=== PATIENT | male | born 1975 | race African-American/Black ===

== ENCOUNTER 2019-01-25 19:31 | Emergency (ER) | payer OTHER ==
[~2019-01-25] VITALS: Ht 177.8 cm; Wt 66.7 kg
--- NOTE | 2019-01-25 19:59 | PHYS DOC ---
Adult General Chief Complaint Chief Complaint: ALTERED MENTAL STATUS HPI HPI 43-year-old male presents via EMS with patient care director escort syncopal episode at the senior care. The patient tells me that he remembers going back to his cell after dinner. He felt like he needed to go to the restroom. He was not able to immediately to the restroom and thus lasting he remembers. He believes that he was standing up when he blacked out. When he woke up there were several guards around him telling him that he smoked something. The patient denies any smoking anything or did any other drugs. He denies any pain at this time. He has no seizure history. He is not on any medications. The guards who accompany him state that the story is consistent with what they were told. He was found [facility] under his bed in his cell. He was initially unresponsive, but his body was twitching. Patient has not had recent illness. He denies fever or chills. Review of Systems Review of Systems Constitutional: Denies fever or chills [] Eyes: Denies change in visual acuity, redness, or eye pain [] HENT: Denies nasal congestion or sore throat [] Respiratory: Denies cough or shortness of breath [] Cardiovascular: No additional information not addressed in HPI [] GI: Denies abdominal pain, nausea, vomiting, bloody stools or diarrhea [] : Denies dysuria or hematuria [] Musculoskeletal: Denies back pain or joint pain [] Integument: Denies rash or skin lesions [] Neurologic: Syncope. Denies headache, focal weakness or sensory changes [] Endocrine: Denies polyuria or polydipsia [] All other systems were reviewed and found to be within normal limits, except as documented in this note. Current Medications Current Medications Current Medications Medications (Trade) Dose Ordered Sig/Clyde Start Time Stop Time Status Last Admin Dose Admin Sodium Chloride 1,000 ml @ 1,000 mls/hr 1X ONCE 01/25/19 20:00 01/25/19 20:59 UNV 01/25/19 19:52 1,000 MLS/HR Physical Exam Physical Exam Constitutional: Well developed, well nourished, no acute distress, non-toxic appearance. [] HENT: Normocephalic, atraumatic, bilateral external ears normal, oropharynx moist, no oral exudates, nose normal. [] Eyes: PERRLA, EOMI, conjunctiva normal, no discharge. [] Neck: Normal range of motion, no tenderness, supple, no stridor. [] Cardiovascular:Heart rate regular rhythm, no murmur [] Lungs & Thorax: Bilateral breath sounds clear to auscultation [] Abdomen: Bowel sounds normal, soft, no tenderness, no masses, no pulsatile masses. [] Skin: Warm, dry, no erythema, no rash. [] Back: No tenderness, no CVA tenderness. [] Extremities: No tenderness, no cyanosis, no clubbing, ROM intact, no edema. [] Neurologic: Alert and oriented X 3, normal motor function, normal sensory function, no focal deficits noted. [] Psychologic: Affect normal, judgement normal, mood blunted. [] EKG EKG Sinus rhythm, rate 79, normal axis, no ST elevations or depressions.[] Radiology/Procedures Radiology/Procedures [] Course & Med Decision Making Course & Med Decision Making Pertinent Labs and Imaging studies reviewed. (See chart for details) Patient's labs are unremarkable. His urinalysis is negative for infection. His EKG is unremarkable. We have given the patient 2 L normal saline, 4 mg of Zofran. His urine drug screen was positive for methamphetamine. This is likely the source of his difficulties. The patient is at baseline at this time. He is stable for discharge. [] Dragon Disclaimer Dragon Disclaimer This electronic medical record was generated, in whole or in part, using a voice recognition dictation system. Departure Departure: Impression: Primary Impression: Methamphetamine abuse Disposition: 01 HOME, SELF-CARE Condition: STABLE Patient Instructions: Methamphetamine Abuse, Complications NICOLE BOURGEOIS DO Jan 25, 2019 19:59
[2019-01-25 20:00] LABS: BASO % 0 % (0-3); EOS % 0 % (0-3); HEMOGLOBIN 16.8 g/dL (13.0-17.5); LYMPH # 1.4 x10^3/uL (1.0-4.8); LYMPH % 13 % (24-48); MEAN CORPUSCULAR HEMOGLOBIN 31 pg (25-35); MEAN CORPUSCULAR HGB CONC 34 g/dL (31-37); MEAN CORPUSCULAR VOLUME 90 fL (79-100); MONO # 0.9 x10^3/uL (0.0-1.1); MONO % 8 % (0-9); NEUT # 9.1 x10^3uL (1.8-7.7); NEUT % 79 % (31-73); PLATELET COUNT 231 x10^3/uL (140-400); RED BLOOD COUNT 5.44 x10^6/uL (4.30-5.70); RED CELL DISTRIBUTION WIDTH 12.6 % (11.5-14.5); WHITE BLOOD COUNT 11.5 x10^3/uL (4.0-11.0)
[2019-01-25] MEDS ORDERED: IV NORMAL SALINE 1,000ML 1,000 ML IV ONE ×2 (20:00→20:45)
[2019-01-25 20:15] LABS: ALBUMIN 3.6 g/dL (3.4-5.0); CALCIUM 8.9 mg/dL (8.5-10.1); CREATININE 1.7 mg/dL (0.7-1.3); GFR 44.4; TOTAL PROTEIN 7.1 g/dL (6.4-8.2)
[2019-01-25 22:04] VITALS: BP 136/78
[2019-01-25 22:07] LABS: BARBITURATES NEG (NEG); BENZODIAZEPINES NEG (NEG); CANNABINOIDS NEG (NEG); COCAINE NEG (NEG); METHADONE NEG (NEG); OPIATES NEG (NEG); PHENCYCLIDINE NEG (NEG)
[2019-01-25 22:11] LABS: BILIRUBIN,URINE NEG (NEG); CLARITY,URINE HAZY; COLOR,URINE YELLOW; GLUCOSE,URINE NEG (NEG)
[2019-01-25 22:12] LABS: BACTERIA,URINE 0 /HPF (0-FEW); GRANULAR CASTS,URINE OCC /HPF; HYALINE CASTS, URINE OCC /HPF; NITRITE,URINE NEG (NEG); SQUAMOUS EPITHELIAL CELL,UR OCC /LPF; UROBILINOGEN,URINE 0.2 mg/dL (0.2 mg/dL)
[2019-01-25 22:15] LABS: AMPHETAMINE/METHAMPHETAMINE POS (NEG)
--- NOTE | 2019-01-26 05:31 | EKG ---
[address] [id number] Test Date: 2019-01-25 Test Time: 19:47:25 Pat Name: MAEGAN RODRIGUEZ Department: Room: Gender: M Account Associate: : [id number] Requested By: NICOLE BOURGEOIS Order Number: [id number] Reading MD: Measurements Intervals [place] Rate: 79 P: 65 [place]: 176 QRS: 26 QRSD: 92 T: 61 QT: 360 QTc: 419 Interpretive Statements SINUS RHYTHM OTHERWISE NORMAL ECG RI6.01 No previous ECG available for comparison
== END 2019-01-25 22:35 | disposition home or self-care (01) ==
LOC: EEVIPCON 19:31 → ER 19:31
DX: F15.10 Other stimulant abuse, uncomplicated (principal); R55 Syncope and collapse
CPT/HCPCS: 36415; 80053; 80307; 81001; 84484; 85025; 93005; 96360; 96361; 99285-25; J7030